=== PATIENT | male | born 1940 | race Caucasian/White ===

== ENCOUNTER 2017-09-21 13:21 | Inpatient (IN) | payer OTHER ==
[~2017-09-21] VITALS: Ht 175.3 cm; Wt 84.5 kg
[2017-09-21 15:05] LABS: UA SPECIFIC GRAVITY >=1.030 (1.005-1.035); microscopic required? YES; urine erythrocyte 1+ (NEGATIVE)
[2017-09-21 15:10] LABS: PLATELET COUNT 214 x10^3mcL (130-400); RED CELL DISTRIBUTION WIDTH 14.3 % (11.5-14.5)
[2017-09-21 15:11] LABS: BASOPHIL % 0.2 % (0-2)
[2017-09-21 15:14] LABS: AMPHETAMINE QUAL UR NONE DETECTED (NEG <=1000)
[2017-09-21 15:25] LABS: CARBON DIOXIDE 28.6 mmol/L (21-32); CHLORIDE SERUM 103 mmol/L (98-107); GLUCOSE SERUM 118 mg/dL (74-106); POTASSIUM SERUM 3.7 mmol/L (3.5-5.1); SODIUM SERUM 141 mmol/L (136-145)
[2017-09-21 15:30] LABS: ALBUMIN 3.6 g/dL (3.4-5.0); ALKALINE PHOSPHATASE 70 U/L (46-116); ALT/SGPT 21 U/L (16-63); AST/SGOT 20 U/L (15-37); BILIRUBIN TOTAL 0.3 mg/dL (0.20-1.00); CHOLESTEROL 197 mg/dL (<200); TOTAL PROTEIN, SERUM 7.3 g/dL (6.4-8.2)
[2017-09-21] MEDS ORDERED: GLUCOTROL5 MG PO (17:56)
[2017-09-21] MEDS ORDERED: GOOD SENSE OMEP20 MG PO (17:56)
[2017-09-21] MEDS ORDERED: ZESTRIL10 MG PO (17:57)
[2017-09-21] MEDS ORDERED: LOVASTATIN40 MG PO (17:57)
[2017-09-21] MEDS ORDERED: NOR10 PO (17:57)
[2017-09-21 18:09] VITALS: BP 136/83
[2017-09-21 18:31] LABS: PHOSPHOROUS 3.9 mg/dL (2.5-4.9)
[2017-09-21 18:36] LABS: CHOLESTEROL/HDL RATIO 2.6
[2017-09-21 20:27] LABS: T3 TOTAL 1.27 ng/mL
[2017-09-21 20:28] LABS: FREE T4 1.17 ng/dL (0.76-1.46); FREE THYROXINE INDEX 3.1 ug/dL (1.4-4.5); T4(THYROXINE) 9.5 ug/dL (4.7-13.3)
[2017-09-22 00:35] VITALS: BP 106/71
[2017-09-22 06:18] LABS: BASOPHIL % 0.3 % (0-2); PLATELET COUNT 191 x10^3mcL (130-400); RED CELL DISTRIBUTION WIDTH 14.4 % (11.5-14.5)
[2017-09-22 06:21] LABS: CALCIUM 7.8 mg/dL (8.5-10.1); CARBON DIOXIDE 30.9 mmol/L (21-32); CHLORIDE SERUM 105 mmol/L (98-107); GLUCOSE SERUM 108 mg/dL (74-106); MAGNESIUM 2.1 mg/dL (1.8-2.4); PHOSPHOROUS 3.9 mg/dL (2.5-4.9); SODIUM SERUM 142 mmol/L (136-145)
[2017-09-22 07:12] VITALS: BP 106/66
[2017-09-22 19:17] VITALS: BP 123/77
[2017-09-22 21:33] VITALS: BP 140/84
[2017-09-23 05:49] VITALS: BP 135/85
[2017-09-23 07:26] LABS: BASOPHIL % 0.4 % (0-2); PLATELET COUNT 196 x10^3mcL (130-400); RED CELL DISTRIBUTION WIDTH 14.5 % (11.5-14.5)
[2017-09-23 07:46] LABS: CALCIUM 7.7 mg/dL (8.5-10.1); CARBON DIOXIDE 28.2 mmol/L (21-32); CHLORIDE SERUM 106 mmol/L (98-107); CREATININE SERUM 0.8 mg/dL (0.7-1.3); GLUCOSE SERUM 82 mg/dL (74-106); MAGNESIUM 2.1 mg/dL (1.8-2.4); PHOSPHOROUS 3.2 mg/dL (2.5-4.9); POTASSIUM SERUM 3.9 mmol/L (3.5-5.1); SODIUM SERUM 142 mmol/L (136-145)
[2017-09-23 09:08] VITALS: BP 116/78
[2017-09-23] MEDS ORDERED: DIL100 PO (10:35)
[2017-09-23 12:17] VITALS: Ht 175.3 cm; Wt 84.5 kg
[2017-09-23 12:56] VITALS: BP 116/78
== END 2017-09-23 13:51 | disposition home health service (06) | DRG 73 ==
LOC: ED 13:21 → DU 17:00 → MU 17:00 → DU 17:59 → MU 09-22 11:00
PROVIDERS: Emergency Medicine; Family Medicine
DX: G90.9 Disorder of the autonomic nervous system, unspecified (principal); N17.0 Acute kidney failure with tubular necrosis; G92 Toxic encephalopathy; F10.239 Alcohol dependence with withdrawal, unspecified; G40.909 Epilepsy, unspecified, not intractable, without status epilepticus; R73.03 Prediabetes; E83.51 Hypocalcemia; I10 Essential (primary) hypertension; K21.9 Gastro-esophageal reflux disease without esophagitis; E78.5 Hyperlipidemia, unspecified; Z68.28 Body mass index [BMI] 28.0-28.9, adult
CPT/HCPCS: 82962; 83880; 84439; 97110-GP; 97116-GP; 97530-GP; G0480; J1165; J2060; J2250; J2405; J7030; Q0092

== ENCOUNTER 2017-11-25 18:35 | Inpatient (IN) | payer OTHER ==
[~2017-11-25] VITALS: Ht 175.3 cm; Wt 78.9 kg
[~2017-11-25 18:35] MED LIST: DIL100 PO; GLUCOTROL5 MG PO; GOOD SENSE OMEP20 MG PO; LOVASTATIN40 MG PO; NOR10 PO; ZESTRIL10 MG PO
[2017-11-25 22:27] LABS: BASOPHIL % 0.1 % (0-2); PLATELET COUNT 210 x10^3mcL (130-400); RED CELL DISTRIBUTION WIDTH 14.5 % (11.5-14.5)
[2017-11-25 22:35] LABS: CALCIUM 8.4 mg/dL (8.5-10.1); CARBON DIOXIDE 30.2 mmol/L (21-32); CHLORIDE SERUM 101 mmol/L (98-107); CREATININE SERUM 0.9 mg/dL (0.7-1.3); GLUCOSE SERUM 110 mg/dL (74-106); POTASSIUM SERUM 3.6 mmol/L (3.5-5.1); SODIUM SERUM 132 mmol/L (136-145)
[2017-11-25 22:40] LABS: ALBUMIN 3.5 g/dL (3.4-5.0); ALKALINE PHOSPHATASE 76 U/L (46-116); ALT/SGPT 22 U/L (16-63); AST/SGOT 26 U/L (15-37); BILIRUBIN TOTAL 0.34 mg/dL (0.20-1.00); TOTAL PROTEIN, SERUM 7.4 g/dL (6.4-8.2)
[2017-11-25 23:52] VITALS: BP 148/77
[2017-11-26 01:12] LABS: FREE T4 1.29 ng/dL (0.76-1.46); FREE THYROXINE INDEX 3.5 ug/dL (1.4-4.5)
[2017-11-26 01:31] LABS: MAGNESIUM 1.9 mg/dL (1.8-2.4); PHOSPHOROUS 3.5 mg/dL (2.5-4.9)
[2017-11-26 01:32] LABS: CHOLESTEROL/HDL RATIO 2.8
[2017-11-26 01:42] LABS: T3 TOTAL 1.35 ng/mL
[2017-11-26] MEDS ORDERED: ZESTRIL10 MG PO (03:25)
[2017-11-26] MEDS ORDERED: NOR10 PO (03:26)
[2017-11-26] MEDS ORDERED: PHENYTOIN SODI100 M4 PO (03:28)
[2017-11-26] MEDS ORDERED: LOVASTATIN40 MG PO (03:29)
[2017-11-26 07:27] VITALS: BP 161/93
[2017-11-26 08:47] VITALS: Ht 175.3 cm; Wt 78.9 kg
[2017-11-26 09:30] VITALS: BP 148/95
[2017-11-26 09:58] LABS: BASOPHIL % 0.2 % (0-2); PLATELET COUNT 202 x10^3mcL (130-400)
[2017-11-26 10:02] LABS: RED CELL DISTRIBUTION WIDTH 15.1 % (11.5-14.5)
[2017-11-26 10:33] LABS: CALCIUM 8.3 mg/dL (8.5-10.1); CARBON DIOXIDE 29.4 mmol/L (21-32); CHLORIDE SERUM 105 mmol/L (98-107); CREATININE SERUM 0.8 mg/dL (0.7-1.3); GLUCOSE SERUM 89 mg/dL (74-106); POTASSIUM SERUM 3.8 mmol/L (3.5-5.1); SODIUM SERUM 141 mmol/L (136-145)
[2017-11-26 13:30] VITALS: BP 131/87
[2017-11-26 15:02] LABS: microscopic required? NO
[2017-11-26 15:33] LABS: urine erythrocyte NEGATIVE (NEGATIVE)
[2017-11-26 15:57] LABS: AMPHETAMINE QUAL UR NONE DETECTED (NEG <=1000)
[2017-11-26 18:28] VITALS: BP 150/101
[2017-11-26 21:18] VITALS: BP 120/77
[2017-11-27 05:44] VITALS: BP 150/98
[2017-11-27 06:04] VITALS: BP 136/83
[2017-11-27 06:12] LABS: BASOPHIL % 0.4 % (0-2); PLATELET COUNT 200 x10^3mcL (130-400)
[2017-11-27 06:20] LABS: CALCIUM 8.6 mg/dL (8.5-10.1); CARBON DIOXIDE 28.7 mmol/L (21-32); CHLORIDE SERUM 104 mmol/L (98-107); CREATININE SERUM 0.8 mg/dL (0.7-1.3); GLUCOSE SERUM 94 mg/dL (74-106); POTASSIUM SERUM 3.6 mmol/L (3.5-5.1); SODIUM SERUM 140 mmol/L (136-145)
[2017-11-27 07:01] LABS: RED CELL DISTRIBUTION WIDTH 14.9 % (11.5-14.5)
[2017-11-27 14:36] VITALS: BP 145/89
[2017-11-27 16:50] VITALS: BP 141/92
[2017-11-28 06:00] VITALS: BP 157/86
[2017-11-28 06:30] VITALS: BP 157/86
[2017-11-28 07:28] LABS: BASOPHIL % 0.2 % (0-2); PLATELET COUNT 235 x10^3mcL (130-400)
[2017-11-28 07:36] LABS: RED CELL DISTRIBUTION WIDTH 14.9 % (11.5-14.5)
[2017-11-28 07:55] LABS: CALCIUM 9.8 mg/dL (8.5-10.1); CARBON DIOXIDE 27.7 mmol/L (21-32); CHLORIDE SERUM 101 mmol/L (98-107); CREATININE SERUM 0.8 mg/dL (0.7-1.3); GLUCOSE SERUM 83 mg/dL (74-106); MAGNESIUM 2.3 mg/dL (1.8-2.4); PHOSPHOROUS 3.4 mg/dL (2.5-4.9); POTASSIUM SERUM 3.6 mmol/L (3.5-5.1); SODIUM SERUM 140 mmol/L (136-145)
[2017-11-28 10:00] VITALS: BP 123/85
[2017-11-28 12:37] VITALS: BP 112/75
[2017-11-28 17:28] VITALS: BP 119/80
[2017-11-28 21:30] VITALS: BP 112/75
[2017-11-29 06:05] VITALS: BP 118/81
[2017-11-29 07:55] LABS: BASOPHIL % 0.4 % (0-2); PLATELET COUNT 222 x10^3mcL (130-400)
[2017-11-29 08:03] LABS: RED CELL DISTRIBUTION WIDTH 14.8 % (11.5-14.5)
[2017-11-29 08:18] LABS: CALCIUM 8.8 mg/dL (8.5-10.1); CARBON DIOXIDE 29.1 mmol/L (21-32); CHLORIDE SERUM 103 mmol/L (98-107); CREATININE SERUM 0.9 mg/dL (0.7-1.3); GLUCOSE SERUM 111 mg/dL (74-106); MAGNESIUM 2.1 mg/dL (1.8-2.4); PHOSPHOROUS 4.6 mg/dL (2.5-4.9); POTASSIUM SERUM 3.6 mmol/L (3.5-5.1); SODIUM SERUM 141 mmol/L (136-145)
[2017-11-30] VITALS (7 sets, daily range): BP systolic 120–145; BP diastolic 76–95
[2017-11-30 06:12] LABS: BASOPHIL % 0.6 % (0-2); PLATELET COUNT 241 x10^3mcL (130-400)
[2017-11-30 06:21] LABS: CALCIUM 8.6 mg/dL (8.5-10.1); CHLORIDE SERUM 103 mmol/L (98-107); CREATININE SERUM 0.8 mg/dL (0.7-1.3); GLUCOSE SERUM 95 mg/dL (74-106); MAGNESIUM 1.9 mg/dL (1.8-2.4); PHOSPHOROUS 4.1 mg/dL (2.5-4.9); POTASSIUM SERUM 3.6 mmol/L (3.5-5.1); SODIUM SERUM 141 mmol/L (136-145)
[2017-11-30 06:28] LABS: RED CELL DISTRIBUTION WIDTH 14.7 % (11.5-14.5)
[2017-11-30] MEDS ORDERED: LIB25 PO (16:53)
[2017-11-30] MEDS ORDERED: THI100 PO (16:54)
[2017-11-30] MEDS ORDERED: FOL1 PO (16:54)
[2017-11-30] MEDS ORDERED: THERAGRAN-M1 TA4 PO (16:54)
== END 2017-12-01 01:15 | DRG 92 ==
LOC: ED 18:35 → DU 22:26
PROVIDERS: Emergency Medicine; Family Medicine Sports Medicine; Student in an Organized Health Care Education/Training Program
DX: G92 Toxic encephalopathy (principal); F10.239 Alcohol dependence with withdrawal, unspecified; G40.89 Other seizures; E87.1 Hypo-osmolality and hyponatremia; I42.0 Dilated cardiomyopathy; Y90.9 Presence of alcohol in blood, level not specified; E78.5 Hyperlipidemia, unspecified; I10 Essential (primary) hypertension; Z53.29 Procedure and treatment not carried out because of patient's decision for other reasons; G90.8 Other disorders of autonomic nervous system; Z79.899 Other long term (current) drug therapy; G20 Parkinson's disease; D64.9 Anemia, unspecified
CPT/HCPCS: 82962; 83880; 84439; 92610-GN; 97110-GP; 97116-GP; 97530-GP; G0480; J1200; J1630; J2060; J7030; Q0092